=== PATIENT | male | born 1940 | race Caucasian/White ===

== ENCOUNTER 2016-07-18 09:06 | Inpatient (IN) | payer MEDICARE, OTHER ==
[~2016-07-18] VITALS: Ht 180.3 cm; Wt 86.0 kg
[2016-07-18] MEDS ORDERED: CETI10 PO (09:42)
[2016-07-18] MEDS ORDERED: HYDR25TA5 PO (09:42)
[2016-07-18] MEDS ORDERED: PRAD150C PO (09:42)
[2016-07-18] MEDS ORDERED: BOSW5TAB PO (09:42)
[2016-07-18] MEDS ORDERED: FLUT50SP EACH NARE (09:42)
[2016-07-18] MEDS ORDERED: MULT1TAB85 PO (09:42)
[2016-07-18] MEDS ORDERED: ATOR10TA15 PO (09:42)
[2016-07-18] MEDS ORDERED: METO100T9 PO (09:42)
[2016-07-18] MEDS ORDERED: TURM500C PO (09:42)
[2016-07-18] MEDS ORDERED: RAMI10CA PO (09:42)
[2016-07-18] MEDS ORDERED: UBIQ100C PO (10:09)
[2016-08-10] MEDS ORDERED: INSULIN HUMAN REGULAR 1,000 UNITS/10 ML VIAL SQ PRN (05:45)
[2016-08-10] MEDS ORDERED: DEXAMETHASONE SOD PHOS 4 MG/ML VIAL IV SCH (05:45)
[2016-08-10] MEDS ORDERED: SODIUM CHLORID 0.9% 500 ML IV SCH (05:45)
[2016-08-10] MEDS ORDERED: METOPROLOL TARTRATE 25 MG TAB PO PRN (05:45)
[2016-08-10] MEDS ORDERED: VANCOMYCIN 1000 MG/NS 250 ML (for <70 kg) IV SCH ×2 (05:45)
[2016-08-10] MEDS ORDERED: LACTATED RINGER'S 1000 ML IV SCH (05:45)
[2016-08-10] MEDS ORDERED: ceFAZolin 2 GM PREMIX 50 ML IV SCH (05:45)
[2016-08-10] MEDS: POVIDONE IODINE 7.5% SCRUB 118 ML BOTTLE TOP SCH (05:45)
[2016-08-10] MEDS ORDERED: DEXAMETHASONE SOD PHOS 20 MG/5 ML VIAL ONE (05:47)
[2016-08-10 06:04] VITALS: BP 186/77; PULSE 74; RESP 16; TEMP 98; O2SAT 98
[2016-08-10] MEDS ORDERED: FAMOTIDINE 20 MG/2 ML VIAL ONE (06:36)
[2016-08-10] MEDS ORDERED: MIDAZOLAM HCL 2 MG/2 ML VIAL ONE (06:48)
[2016-08-10] MEDS ORDERED: METOCLOPRAMIDE HCL 10 MG/2 ML VIAL ONE (06:48)
[2016-08-10] MEDS ORDERED: DEXAMETHASONE SOD PHOS 4 MG/ML VIAL ONE (06:48)
[2016-08-10] MEDS ORDERED: fentaNYL CITRATE 250 MCG/5 ML AMP ONE (06:48)
[2016-08-10] MEDS ORDERED: ACETAMINOPHEN 1000 MG/100 ML VIAL IV ONE (06:48)
--- NOTE | 2016-08-10 06:57 | HHI.DCPOC ---
Discharge Care Plan Diagnosis: (1) Osteoarthritis of right hip (2) Status post total hip replacement, right Your Health Problems Are: Difficulty with ADL Goals to Promote Your Health * To prevent worsening of your condition and complications * To maintain your health at the optimal level Directions to Meet Your Goals Take your medications as prescribed Follow your dietary instruction Follow activity as directed Keep your appointments as scheduled Take your immunizations and boosters as scheduled If your symptoms worsen call your PCP, if no PCP go to Urgent Care Center or Emergency Room Smoking is Dangerous to Your Health. Avoid second hand smoke Call the 24-hour hour crisis hotline for domestic abuse at Danyel Adam Aug 10, 2016 06:57
--- NOTE | 2016-08-10 06:57 | HHI.FF ---
Face to Face Verification Diagnosis: (1) Osteoarthritis of right hip (2) Status post total hip replacement, right Physical Therapy Gait training, Transfer training, bed to chair Hip: Total hip Right LE Weight Bearing: WB as tolerated Right LE Range of Motion: Active ROM Nursing Nursing: Ad teaching, Dressing changes Dressing Changes: Daily dressing change I have seen patient Kamron Barnhart on 08/10/16. My clinical findings support the need for the requested home health care services because: Limited ability to care for self High risk of falls I certify that my clinical findings support that this patient is homebound because: Post-op weakness Unsteady gait/balance Danyel Adam Aug 10, 2016 06:57
[2016-08-10] MEDS ORDERED: COMMODE 3-IN-11 MIS (06:59)
[2016-08-10] MEDS ORDERED: WALKER WHEELS/F1 MIS (06:59)
[2016-08-10] MEDS: EXPAREL PERI-ARTICULAR INJECTION (TOTAL VOL. 60 ML) P-ARTICULR SCH ×4 (07:00→07:56)
[2016-08-10] MEDS: TRANEXAMIC ACID INJ 860 MG in SODIUM CHLORIDE 0.9% INJ 100 ML IV SCH ×2 (07:00→07:56)
[2016-08-10] MEDS ORDERED: GENTAMICIN SULFATE 80 MG/2 ML VIAL IRRIGATION ONE (09:00)
--- NOTE | 2016-08-10 09:08 | PD.OP ---
cc: Edilberto Johansen MD Operative Report Date of Surgery: Aug 10, 2016 Preoperative Diagnosis: Right hip severe osteoarthritis Postoperative Diagnosis: Same Procedure: Right total hip arthroplasty Anesthesia: Gen. Surgeon: Edilberto Johansen Guide Setter(s): RADHA Ferguson The surgical procedure was assisted by my Advanced Registered Nurse Practitioner. My SEARCH ENGINE MARKETING SPECIALIST presence was necessary throughout this case for the manipulation and positioning of the surgical extremity. My SEARCH ENGINE MARKETING SPECIALIST was assisting me throughout the duration of this procedure. The skill set of an Advance Registered Nurse Practitioner was medically necessary to complete this procedure. During the surgical case, the combination technician was working at the back table and the Advance Registered Nurse Practitioner was directly assisting me. Operation and Findings: IMPLANT DESCRIPTION: 1. Bradford Gription Cup, acetabular size 54. 2. Bradford AltrX polyethylene, neutral. 4. [place] femoral stem size 12, no collar, standard offset. 5. Femoral head/neck metal, 36, +1.5. ESTIMATED BLOOD LOSS: 250 cc. JUSTIFICATION FOR PROCEDURE: The patient has end-stage osteoarthritis to the hip. There is an attached conservative measures pathway form in the chart that describes the nonoperative measures that were undertaken prior to consideration of surgical management. The patient understood the risks and benefits of surgical management. See my office notes for further details. PROCEDURE: The patient was brought back to the operative theatre. Adequate anesthesia was obtained. The patient received intravenous vancomycin and Ancef. The patient was carefully placed on the operative table. The lower extremity was prepped and draped in the usual sterile fashion. Fluoroscopic images were obtained. We made a standard anterior incision over the hip. We dissected through the TFL fascia, exposing the anterior capsule. Arthrotomy was performed in a T-shaped fashion. The capsule was tagged with a #2 FiberWire. End-stage arthritis was identified. Osteotomy was performed through the femoral neck exposing the acetabulum. Remnants of the labrum were resected and osteophytes were removed. We sequentially reamed the acetabulum. We trialed the hip and placed the final cup into position. This was done under fluoroscopic guidance to obtain the appropriate inclination and anteversion. A manhole cover was placed into the acetabular component. We then placed the final polyethylene into position and confirmed that it was well seated. Capsular attachments on the calcar and the inner aspect of the greater trochanter were resected. On the proximal aspect of the femur we used a rongeur , box osteotome, canal finder, sequential broaches and lateralizing rasp. We calcar planed the proximal femur. Then thoroughly irrigated the wound. We trialed the hip with the appropriate size stem. We placed the final stem in to position and trialed again. The hip was stable while it was externally rotated 70 degrees when the leg was lowered to the floor. The final head was applied, and final fluoroscopic images were obtained. The wound was thoroughly irrigated again. Interarticular injection of liposomal bupivacaine was given. The capsule was closed with #2 FiberWire and #1 Vicryl. The deep fascia was closed with a #2 Stratafix, followed by 2-0 Vicryl in the skin and kath. Postop plan is to weight-bear as tolerated. DVT prophylaxis will be performed with Larissa, FARZANEH conn, early mobilization, and Lovenox followed by Pradaxa. Edilberto Johansen MD Aug 10, 2016 09:08
[2016-08-10] MEDS ORDERED: ENOX40P SQ (09:10)
[2016-08-10] MEDS ORDERED: NORC5TAB PO (09:10)
[2016-08-10] MEDS ORDERED: SODIUM CHLORIDE 0.9% FLUSH 5 ML FLUSH IVF PRN (09:15)
[2016-08-10] MEDS ORDERED: MORPHINE SULFATE 4 MG/ML INJ IV PUSH PRN (09:15)
[2016-08-10] MEDS ORDERED: BISACODYL 10 MG SUPP PR PRN (09:15)
[2016-08-10] MEDS ORDERED: NALOXONE HCL 0.4 MG/ML AMP IV PRN (09:15)
[2016-08-10] MEDS ORDERED: diphenhydrAMINE HCL 50 MG/ML VIAL IV PRN (09:15)
[2016-08-10] MEDS ORDERED: ONDANSETRON HCL 4 MG/2 ML VIAL IVP PRN (09:15)
[2016-08-10] MEDS ORDERED: ACETAMINOPHEN/HYDROcodone 325 MG/5 MG TAB PO PRN ×2 (09:15)
[2016-08-10] MEDS ORDERED: ZOLPIDEM TARTRATE 5 MG TAB PO PRN (09:15)
[2016-08-10] MEDS ORDERED: ALUMINUM/MAGNESIUM/SIMETH 30 ML CUP PO PRN (09:15)
[2016-08-10] MEDS ORDERED: Post-op Orders (for Pharmacy) MISC XX ONE (09:15)
[2016-08-10] MEDS ORDERED: MAGNESIUM HYDROXIDE SUSP 30 ML CUP PO PRN (09:15)
[2016-08-10] MEDS ORDERED: *ENALAPRILAT 1.25 MG/ML VIAL PERIprocedural Use ONLY ONE (09:32)
[2016-08-10] MEDS ORDERED: *morphine SULFATE 8 MG/ML PERIprocedure ONLY ONE (09:32)
[2016-08-10] MEDS ORDERED: *LABETALOL HCL 100 MG/20 ML VIAL PERIprocedural Use ONLY ONE (09:33)
[2016-08-10] MEDS ORDERED: DO NOT ADM ANY ANTICOAGULANT DRUGS XX PRN (10:30)
[2016-08-10] MEDS: SODIUM CHLOR 0.9% 1000 ML INJ 1,000 ML IV SCH ×2 (10:30→23:08)
--- NOTE | 2016-08-10 10:55 | RADRPT ---
EXAM DATE/TIME: 08/10/2016 09:41 [facility] COMPARISON: CHEST PA & LAT, July 18, 2016, 11:28. INDICATIONS : Post op right hip surgery. MEDICAL HISTORY : None. SURGICAL HISTORY : None. ENCOUNTER: Initial ACUITY: 1 day PAIN SCORE: 0/10 LOCATION: Right hip and pelvis FINDINGS: Portable views of the right pelvis and right hip are performed. There is a total right hip disease is present with normal positioning. Adjacent osseous structures are unremarkable. The imaged left hip d emonstrates severe degenerative change. The bones are normally mineralized. CONCLUSION: The patient is status post total right hip arthroplasty with appropriate positioning of the prosthesi s. Palma Mcgowan MD on August 10, 2016 at 10:52 Board Certified Radiologist. This report was verified electronically.
[2016-08-10] MEDS ORDERED: TRANEXAMIC ACID INJ 860 MG in SODIUM CHLORIDE 0.9% INJ 100 ML IV SCH (11:00)
[2016-08-10 12:00] VITALS: BP 169/74; PULSE 65; RESP 17; TEMP 96.4; O2SAT 98
--- NOTE | 2016-08-10 13:09 | RADRPT ---
EXAM DATE/TIME: 08/10/2016 07:19 [facility] COMPARISON: HIP RIGHT (AP&LAT 2/3VWS) W AP PELVIS, August 10, 2016, 9:41. FLUOROSCOPY PORTABLE UP TO 1HR, 2016, 0:00. INDICATIONS : Right hip total arthroplasty. OR. MEDICAL HISTORY : None. SURGICAL HISTORY : None. ENCOUNTER: Initial ACUITY: 1 day PAIN SCORE: Non-responsive. LOCATION: Right hip FINDINGS: Fluoroscopic images of the right hip demonstrate a total right hip prosthesis and adjacent radiopaque tape which is removed on the subsequent imaging. CONCLUSION: Fluoroscopic imaging of the demonstrate no abnormality.. Palma Mcgowan MD on August 10, 2016 at 13:06 Board Certified Radiologist. This report was verified electronically.
--- NOTE | 2016-08-10 15:01 | PD.CONS ---
HPI Service [facility] Consult Requested By Orthopedic surgery. Reason for Consult Medical management. Primary Care Physician Vijay Abbasi MD Diagnoses: (1) Osteoarthritis of right hip (2) Paroxysmal a-fib (3) HTN (hypertension) (4) HLD (hyperlipidemia) History of Present Illness Mr. Barnhart is a pleasant 76 year old male with a history of hypertension, hyperlipidemia, paroxysmal atrial fibrillation who also has a history of right hip osteoarthritis and underwent elective right total hip arthroplasty on 2016. Post surgery, patient continues to do well. At the time of this interview , patient is sitting in his chair. Reports good pain control. Denies any chest pain, shortness of breath, nausea, vomiting. Denies any changes in bowel or bladder habits. Review of Systems ROS Limitations: Other (Negative except as noted in the HPI. ) Past Family Social History Allergies: Coded Allergies: No Known Allergies (Unverified , 07/18/16) Past Medical History Hypertension Hyperlipidemia Paroxysmal Atrial fibrillation Past Surgical History Hernia repair, nasal polyp surgery Active Ordered Medications Current Medications Povidone Iodine 1 applic 1 applic ONCE TOP Last administered on 08/10/16 05:45 ; Start 08/10/16 at 05:45; Stop 08/13/16 at 05:44 Cefazolin Sodium/ Dextrose 50 ml @ 100 mls/hr WINDOW SHADE INSTALLER IV Last administered on 08/10/16 06:09; Start 08/10/16 at 05:45; Stop 08/13/16 at 05:44 Vancomycin HCl 1000 mg/Sodium Chloride 250 ml @ 250 mls/hr WINDOW SHADE INSTALLER IV Last administered on 08/10/16 06:11; Start 08/10/16 at 05:45; Stop 08/13/16 at 05:44 Tranexamic Acid 860 mg/Sodium Chloride 108.6 ml @ 200 mls/hr ONCE IV Last administered on 08/10/16 07:56; Start 08/10/16 at 07:00; Stop 08/10/16 at 13:00 ; Status DC Bupivacaine Liposome 20 ml/ Sodium Chloride 60 ml @ 120 mls/hr ONCE P-ARTICULR Last administered on 08/10/16 07:56; Start 08/10/16 at 07:00; Stop 08/10/16 at 13:00; Status DC Lactated Ringer's 1,000 ml @ 30 mls/hr Q24H IV Last administered on 08/10/16 06:00; Start 08/10/16 at 05:45; Stop 08/10/16 at 10:27; Status DC Sodium Chloride (NS 500 ml Inj) 500 ml @ 30 mls/hr [id number] IV ; Start 08/10/16 at 05:45; Stop 08/10/16 at 10:27; Status DC Insulin Human Regular (NovoLIN R INJ) See Protocol Table ... UNSCH X1 PRN SQ SEE PROTOCOL; Start 08/10/16 at 05:45; Stop 08/11/16 at 05:44 Metoprolol Tartrate (Lopressor) 25 mg UNSCH X1 PRN PO SEE LABEL COMMENTS; Start 08/10/16 at 05:45; Stop 08/11/16 at 05:44 Dexamethasone Sodium Phosphate (Decadron Inj) 10 mg WINDOW SHADE INSTALLER IV ; Start at 05:45; Stop 08/10/16 at 12:00; Status DC Dexamethasone Sodium Phosphate (Decadron Inj) 20 mg STK-MED ONCE .ROUTE Last administered on 08/10/16 06:05; Start 08/10/16 at 05:47; Stop 08/10/16 at 05:48 ; Status DC Famotidine (Pepcid Inj) 20 mg STK-MED ONCE .ROUTE Last administered on 06:37; Start 08/10/16 at 06:36; Stop 08/10/16 at 06:37; Status DC Acetaminophen (Ofirmev Inj) 1,000 mg STK-MED ONCE IV ; Start 08/10/16 at 06:48; Stop 08/10/16 at 06:52; Status DC Midazolam HCl (Versed Inj) 2 mg STK-MED ONCE .ROUTE ; Start 08/10/16 at 06:48; Stop 08/10/16 at 06:52; Status DC Fentanyl Citrate (fentaNYL INJ) 100 mcg STK-MED ONCE .ROUTE ; Start 08/10/16 at 06:48; Stop 08/10/16 at 06:52; Status DC Fentanyl Citrate (fentaNYL INJ) 250 mcg STK-MED ONCE .ROUTE ; Start 08/10/16 at 06:48; Stop 08/10/16 at 06:52; Status DC Dexamethasone Sodium Phosphate (Decadron Inj) 8 mg STK-MED ONCE .ROUTE ; Start 08/10/16 at 06:48; Stop 08/10/16 at 06:52; Status DC Metoclopramide HCl (Reglan Inj) 10 mg STK-MED ONCE .ROUTE ; Start 08/10/16 at 06 :48; Stop 08/10/16 at 06:52; Status DC Atorvastatin Calcium (Lipitor) 10 mg HS PO Last administered on 08/10/16 23:08 ; Start 08/10/16 at 21:00 Cetirizine HCl (ZyrTEC) 10 mg HS PO Last administered on 08/10/16 23:08; Start 08/10/16 at 21:00 Hydrochlorothiazide (Hydrodiuril) 25 mg DAILY PO ; Start 08/11/16 at 09:00 Ramipril (Altace) 10 mg DAILY PO ; Start 08/11/16 at 09:00 Metoprolol Succinate (Toprol Xl) 100 mg DAILY PO ; Start 08/11/16 at 09:00 Non-Formulary Medication 10 mg 10 mg DAILY PO ; Start 08/11/16 at 09:00; Status UNV Sodium Chloride (NS 1000 ml Inj) 1,000 ml @ 100 mls/hr Q10H IV Last administered on 08/10/16 23:08; Start 08/10/16 at 11:00 IV Flush (NS Flush) 2 ml UNSCH PRN IVF FLUSH AFTER USING IV ACCESS; Start 08/10 at 09:15 IV Flush 2 ml 2 ml BID IVF Last administered on 08/10/16 23:10; Start at 21:00 Cefazolin Sodium/ Sodium Chloride (Ancef Inj/NS Inj) 100 ml @ 200 mls/hr Q6H IV Last administered on 08/10/16 23:59; Start 08/10/16 at 12:00; Stop at 00:29 Miscellaneous Information (Post-op Orders (for Pharmacy)) STAT ONCE XX ; Start 08/10/16 at 09:15; Stop 08/10/16 at 10:45; Status DC Dexamethasone Sodium Phosphate (Decadron Inj) 10 mg ONCE ONCE IV ; Start at 07:45; Stop 08/11/16 at 07:46 Enoxaparin Sodium (Lovenox Inj) 40 mg Q24H SQ ; Start 08/11/16 at 09:00; Stop at 09:01 Acetaminophen/ Hydrocodone Bitart ([place] 5-325 Mg) 1 tab Q4H PRN PO PAIN LESS THAN 5 ON SCALE; Start 08/10/16 at 09:15 Acetaminophen/ Hydrocodone Bitart 2 tab 2 tab Q4H PRN PO PAIN SCALE 5 TO 10; Start 08/10/16 at 09:15 Tranexamic Acid/ Sodium Chloride (Cyklokapron Inj/ NS Inj) 108.6 ml @ 200 mls/ hr UNSCH IV Last administered on 08/10/16t 11:43; Start 08/10/16 at 11:00; Stop 08/10/16 at 17:00; Status DC Multivitamins/ Minerals Therapeutic (Theragran M Tab) 1 tab BID PO ; Start 08/11 at 21:00; Stop 10/10/16 at 20:59 Ondansetron HCl (Zofran Inj) 4 mg Q6H PRN IVP NAUSEA OR VOMITING; Start at 09:15 Docusate Sodium (Colace) 100 mg BID PO ; Start 08/11/16 at 21:00 Al Hydrox/Mg Hydrox/Simethicone (Mag-Al Plus Susp Liq) 30 ml Q6H PRN PO INDIGESTION; Start 08/10/16 at 09:15 Zolpidem Tartrate (Ambien) 5 mg HS PRN PO SLEEP; Start 08/10/16 at 09:15 Bisacodyl (Dulcolax Supp) 10 mg DAILY PRN CA CONSTIPATION; Start 08/10/16 at 09 :15 Magnesium Hydroxide (Milk Of Magnesia Liq) 30 ml DAILY PRN PO CONSTIPATION; Start 08/10/16 at 09:15 Naloxone HCl (Narcan Inj) 0.4 mg UNSCH PRN IV RESPIRATORY RATE LESS THAN 10; Start 08/10/16 at 09:15 Diphenhydramine HCl (Benadryl Inj) 25 mg Q6H PRN IV ITCHING; Start 08/10/16 at 09:15 Morphine Sulfate (Morphine Inj) 2 mg Q3H PRN IV PUSH pain greater than 5; Start 08/10/16 at 09:15 Morphine Sulfate (*morphine INJ PERIprocedure ONLY) 8 mg STK-MED ONCE .ROUTE Last administered on 08/10/16 09:32; Start 08/10/16 at 09:32; Stop 08/10/16 at 09:37; Status DC Enalaprilat (*VASOTEC INJ PERIprocedural Use ONLY) 1.25 mg STK-MED ONCE .ROUTE Last administered on 08/10/16 09:32; Start 08/10/16 at 09:32; Stop 08/10/16 at 09:37; Status DC Labetalol HCl (*TRANDATE INJ PERIprocedural Use ONLY) 100 mg STK-MED ONCE .ROUTE Last administered on 08/10/16 09:33; Start 08/10/16 at 09:33; Stop 06/16 at 09:37; Status DC Miscellaneous Information ALL NURSING DEPARTME... UNSCH PRN XX SEE LABEL COMMENTS; Start 08/10/16 at 10:30; Stop 08/11/16 at 10:29 Gentamicin Sulfate (Gentamicin Inj) 240 mg STK-MED ONCE IRRIGATION Last administered on 08/10/16 09:00; Start 08/10/16 at 09:00; Stop 08/10/16 at 11:11 ; Status DC Propofol (Diprivan 200 Mg/20 ml Inj) 200 mg STK-MED ONCE IV ; Start 08/10/16 at 15:16; Stop 08/10/16 at 15:17; Status DC Ondansetron HCl 4 mg 4 mg STK-MED ONCE IV PUSH ; Start 08/10/16 at 15:16; Stop 08/10/16 at 15:17; Status DC Lactated Ringer's (Lr 1000 ml Inj) 1,000 ml @ As Directed STK-MED ONCE IV ; Start 08/10/16 at 15:16; Stop 08/10/16 at 15:17; Status DC Family History Mother had dementia. Social History Does not smoke but drinks 1-2 glasses of wine several times a week. Physical Exam Vital Signs Vital Signs Date Time Temp Pulse Resp B/P Pulse Ox O2 Delivery O2 Flow Rate FiO2 08/10/16 12:00 96.4 65 17 169/74 98 08/10/16 11:30 70 16 167/76 99 Nasal Cannula 2 08/10/16 11:00 66 16 164/80 99 Nasal Cannula 2 08/10/16 10:30 62 16 162/72 99 Nasal Cannula 2 08/10/16 10:15 76 16 160/70 99 Nasal Cannula 2 08/10/16 10:00 68 16 184/89 99 Nasal Cannula 2 08/10/16 09:45 76 16 169/75 99 Nasal Cannula 2 08/10/16 09:30 68 16 188/92 99 Nasal Cannula 2 08/10/16 09:20 98.7 60 16 197/93 99 Nasal Cannula 2 08/10/16 06:04 98.0 74 16 186/77 98 Physical Exam GENERAL: This is a well-nourished, well-developed patient, in no apparent distress. SKIN: No rashes, ecchymoses or lesions. Warm and dry. HEAD: Atraumatic. Normocephalic. No temporal or scalp tenderness. EYES: Pupils equal round and reactive. No injection or drainage. ENT: Nose without bleeding, purulent drainage or septal hematoma. Airway patent. NECK: Trachea midline. No lymphadenopathy. Supple, nontender, no meningeal signs. CARDIOVASCULAR: Regular rate and rhythm, gallops, or rubs. No JVD. Systolic murmur present likely aortic stenosis. RESPIRATORY: Clear to auscultation. Breath sounds equal bilaterally. No wheezes , rales, or rhonchi. GASTROINTESTINAL: Abdomen soft, non-tender, nondistended. No guarding. MUSCULOSKELETAL: Extremities without clubbing, cyanosis, or edema. NEUROLOGICAL: Awake and alert. Cranial nerves II through XII intact. No focal neurological deficits. Normal speech. Laboratory Laboratory Tests Test 08/10/16 06:03 Blood Type O POSITIVE Antibody Screen NEGATIVE Blood Bank Comment Imaging Last Impressions Hip and Pelvis X-Ray 08/10/16 0903 Signed Impressions: Service Date/Time: Wednesday, August 10, 2016 09:41 - CONCLUSION: The patient is status post total right hip arthroplasty with appropriate positioning of the prosthesis. Palma Mcgowan MD Hip X-Ray 08/10/16 0000 Signed Impressions: Service Date/Time: Wednesday, August 10, 2016 07:19 - CONCLUSION: Fluoroscopic imaging of the demonstrate no abnormality.. Palma Mcgowan MD Assessment and Plan Problem List: (1) Osteoarthritis of right hip ICD Code: M16.11 Status: Acute (2) Paroxysmal a-fib ICD Code: I48.0 Status: Acute (3) HTN (hypertension) ICD Code: I10 Status: Acute (4) HLD (hyperlipidemia) ICD Code: E78.5 Status: Acute Assessment and Plan Mr. Barnhart, 76 with a history of Afib, HTN, HLD, osteoarthritis who underwent elective right hip arthroplasty on 08/10/2016. Currently, patient is hemodynamically stable, afebrile, pain well controlled. - Osteoarthritis of the right hip - s/p right total hip arthroplasty. - [place], Morphine for pain PRN - Colace, Milk of Mag for bowel regimen. - Lovenox 40mg Q24hrs starting 08/11/2016. - Atrial fibrillation - [id number] score 3 (Age >75, HTN). - Continue metoprolol succinate 100mg Qday - Continue Pradaxa when okay with Orthopedic surgery. - Patient wants to discuss with his Independent Driver regarding once a day dosing of Xarelto. - Also encouraged patient to discuss with his steward/stewardess lounge regarding an Echocardiogram to investigate possible Aortic stenosis. - Hypertension - Continue Ramipril 10mg Qday, HCTZ 25 mg Qday. - Hyperlipidemia - Continue Lipitor 10mg QHS. - Probable pre-diabetic mellitus - Patient is encouraged to discuss with his PCP regarding metformin if indicated. Full code. Lovenox starting 08/11/2016. Thank you for the consult. We will continue to follow this patient with you. Clay Francis DO Aug 10, 2016 15:01
[2016-08-10] MEDS ORDERED: LACTATED RINGER'S 1000 ML INJ 1,000 ML IV ONE (15:16)
[2016-08-10] MEDS ORDERED: ONDANSETRON HCL 4 MG/2 ML VIAL IV PUSH ONE (15:16)
[2016-08-10] MEDS ORDERED: PROPOFOL 200 MG/20 ML AMP IV ONE (15:16)
[2016-08-10 16:00] VITALS: BP 144/65; PULSE 71; RESP 20; TEMP 96.8; O2SAT 98
[2016-08-10 20:40] VITALS: BP 142/63; PULSE 68; RESP 18; TEMP 97.1; O2SAT 97
[2016-08-10] MEDS ORDERED: CETIRIZINE HCL 10 MG TAB PO SCH (21:00)
[2016-08-10] MEDS ORDERED: ATORVASTATIN 10 MG TAB PO SCH (21:00)
[2016-08-10] MEDS: SODIUM CHLORIDE 0.9% FLUSH 5 ML FLUSH IVF SCH (23:10)
[2016-08-11 01:15] VITALS: BP 183/82; PULSE 82; RESP 17; TEMP 97; O2SAT 98
[2016-08-11] MEDS: POVIDONE IODINE 7.5% SCRUB 118 ML BOTTLE TOP SCH (05:45)
[2016-08-11 05:51] LABS: HEMATOCRIT 36.6 % (39.0-51.0); MEAN CELL VOLUME 86.6 FL (80.0-100.0); MEAN CORPUSCULAR HEMOGLOBIN 29.6 PG (27.0-34.0); MEAN CORPUSCULAR HGB CONC 34.2 % (32.0-36.0); PLATELET COUNT 186 TH/MM3 (150-450); RED BLOOD COUNT 4.23 MIL/MM3 (4.50-5.90); RED CELL DISTRIBUTION WIDTH 12.6 % (11.6-17.2); REVIEW FLAG FINAL; WHITE BLOOD COUNT 14.8 TH/MM3 (4.0-11.0)
[2016-08-11] MEDS: SODIUM CHLOR 0.9% 1000 ML INJ 1,000 ML IV SCH (07:00)
[2016-08-11] MEDS ORDERED: DEXAMETHASONE SOD PHOS 20 MG/5 ML VIAL IV ONE (07:45)
[2016-08-11 08:00] VITALS: BP 154/75; PULSE 75; RESP 16; TEMP 98.1; O2SAT 99
[2016-08-11] MEDS ORDERED: METOPROLOL SUCCINATE 50 MG EXTENDED RELEASE TAB PO SCH (09:00)
[2016-08-11] MEDS ORDERED: HYDROCHLOROTHIAZIDE 25 MG TAB PO SCH (09:00)
[2016-08-11] MEDS ORDERED: RAMIPRIL 5 MG CAP PO SCH (09:00)
[2016-08-11] MEDS ORDERED: UBIQUINOL PO SCH (09:00)
[2016-08-11] MEDS: ENOXAPARIN SODIUM 40 MG/0.4 ML SYRINGE SQ SCH ×2 (09:20→09:21)
[2016-08-11] MEDS: SODIUM CHLORIDE 0.9% FLUSH 5 ML FLUSH IVF SCH (09:20)
--- NOTE | 2016-08-11 10:59 | HHI.PR ---
Subjective Remarks Follow up for right hip arthroplasty, Afib. Mr. Barnhart is doing well. Denies any chest pain, shortness of breath, fever or chills. Objective Vitals Vital Signs Date Time Temp Pulse Resp B/P Pulse Ox O2 Delivery O2 Flow Rate FiO2 08/11/16 08:00 98.1 75 16 154/75 99 08/11/16 01:15 97.0 82 17 183/82 98 08/10/16 20:40 97.1 68 18 142/63 97 08/10/16 16:00 96.8 71 20 144/65 98 08/10/16 12:00 96.4 65 17 169/74 98 08/10/16 11:30 70 16 167/76 99 Nasal Cannula 2 08/10/16 11:00 66 16 164/80 99 Nasal Cannula 2 I/O 08/10/16 08/10/16 08/10/16 08/11/16 08/11/16 08/11/16 07:00 15:00 23:00 07:00 15:00 23:00 Intake Total 580 ml 360 ml 1300 ml 720 ml Output Total 800 ml 800 ml 500 ml Balance -220 ml -440 ml 1300 ml 220 ml Intake Oral 480 ml 360 ml 720 ml IV Total 100 ml 1300 ml Output Urine Total 800 ml 800 ml 500 ml # Bowel Movements 0 0 Result Diagram: 08/11/16 0439 Imaging Last Impressions Hip and Pelvis X-Ray 08/10/16 0903 Signed Impressions: Service Date/Time: Wednesday, August 10, 2016 09:41 - CONCLUSION: The patient is status post total right hip arthroplasty with appropriate positioning of the prosthesis. Palma Mcgowan MD Hip X-Ray 08/10/16 0000 Signed Impressions: Service Date/Time: Wednesday, August 10, 2016 07:19 - CONCLUSION: Fluoroscopic imaging of the demonstrate no abnormality.. Palma Mcgowan MD Objective Remarks GENERAL: Alert, oriented 3. SKIN: Warm and dry. HEAD: Normocephalic. EYES: No scleral icterus. No injection or drainage. NECK: Supple, trachea midline. No JVD or lymphadenopathy. CARDIOVASCULAR: Regular rate and rhythm without, gallops, or rubs. Systolic murmur present. RESPIRATORY: Breath sounds equal bilaterally. No accessory muscle use. GASTROINTESTINAL: Abdomen soft, non-tender, nondistended. MUSCULOSKELETAL: No cyanosis, or edema. BACK: Nontender without obvious deformity. No CVA tenderness. Procedures Right total hip arthroplasty 08/10/2016 A/P Problem List: (1) Osteoarthritis of right hip ICD Code: M16.11 Status: Acute (2) Paroxysmal a-fib ICD Code: I48.0 Status: Acute (3) HTN (hypertension) ICD Code: I10 Status: Acute (4) HLD (hyperlipidemia) ICD Code: E78.5 Status: Acute Assessment and Plan Mr. Barnhart, 76 with a history of Afib, HTN, HLD, osteoarthritis who underwent elective right hip arthroplasty on 08/10/2016. Currently, patient is hemodynamically stable, afebrile, pain well controlled. - Osteoarthritis of the right hip - s/p right total hip arthroplasty. - [place], Morphine for pain PRN - Colace, Milk of Mag for bowel regimen. - Lovenox 40mg Q24hrs starting 08/11/2016. - Atrial fibrillation - [id number] score 3 (Age >75, HTN). - Continue metoprolol succinate 100mg Qday - Continue Pradaxa when okay with Orthopedic surgery. - Patient wants to discuss with his Laboratory Apparatus Glass Grinder regarding once a day dosing of Xarelto. - Also encouraged patient to discuss with his counsellors regarding an Echocardiogram to investigate possible Aortic stenosis. - Hypertension - Continue Ramipril 10mg Qday, HCTZ 25 mg Qday. - Hyperlipidemia - Continue Lipitor 10mg QHS. - Probable pre-diabetic mellitus - Patient is encouraged to discuss with his PCP regarding metformin if indicated. Full code. Lovenox starting 08/11/2016. Patient is being discharged today by Orthopedic surgery. Clay Francis DO Aug 11, 2016 10:59 am
[2016-08-11 11:50] VITALS: BP 142/73; PULSE 67; RESP 16; TEMP 97.7; O2SAT 99
--- NOTE | 2016-08-11 12:27 | PD.ORT.PN ---
Subjective Post Op Day #: 1 Subjective Remarks The patient is OOB in chair with no pain to the left hip. Patient is very happy with his surgery and is requesting to go home today. Objective Vitals Vital Signs Date Time Temp Pulse Resp B/P Pulse Ox O2 Delivery O2 Flow Rate FiO2 08/11/16 08:00 98.1 75 16 154/75 99 08/11/16 01:15 97.0 82 17 183/82 98 08/10/16 20:40 97.1 68 18 142/63 97 08/10/16 16:00 96.8 71 20 144/65 98 I/O 08/10/16 08/10/16 08/10/16 08/11/16 08/11/16 08/11/16 07:00 15:00 23:00 07:00 15:00 23:00 Intake Total 580 ml 360 ml 1300 ml 720 ml Output Total 800 ml 800 ml 500 ml Balance -220 ml -440 ml 1300 ml 220 ml Intake Oral 480 ml 360 ml 720 ml IV Total 100 ml 1300 ml Output Urine Total 800 ml 800 ml 500 ml # Bowel Movements 0 0 Result Diagram: 08/11/16 0439 Procedures Right RITA Objective Remarks The patient's dressings are changed today with no drainage. Incision is well approximated with surgical clips intact. No redness or s/s of infection. Mild echymosis. EHL/TA/G intact. 2+ pedal pulse. Calf is soft and nontender. + SILT. Mild swelling. Assessment & Plan Ortho Post Op Day #: 1 Problem List: Assessment and Plan Right RITA 1. WBAT RLE 2. Lovenox for DVT prophylaxis followed by Pradaxa 3. Ice to the right hip PRN 4. Patient stable for discharge home with home health today. Danyel Adam Aug 11, 2016 12:27
[2016-08-11] MEDS ORDERED: DOCUSATE SODIUM 100 MG CAP PO SCH (21:00)
[2016-08-11] MEDS ORDERED: MULTIVITAMINS/MINERALS THERAPEUTIC TAB PO SCH (21:00)
--- NOTE | 2016-08-14 17:52 | HHI.DS ---
Discharge Summary Admission Date Aug 10, 2016 at 05:22 Discharge Date: Aug 11, 2016 Admitting Diagnosis OA of the right hip Status post right Total hip arthroplasty Diagnosis: (1) Status post total hip replacement, right Diagnosis: Principal (2) Osteoarthritis of right hip Diagnosis: Principal Procedures Right RITA Brief History This is a 76 year old male patient with severe OA of the right hip CBC/BMP: 08/11/16 0439 PE at Discharge The patient's dressings are changed today with no drainage. Incision is well approximated with surgical clips intact. No redness or s/s of infection. Mild echymosis. EHL/TA/G intact. 2+ pedal pulse. Calf is soft and nontender. + SILT. Mild swelling. Hospital Course The patient was admitted to the hospital for severe OA of the right hip to have a right RITA. The patient's surgery went well with no complications. The patient had a normal hospital course. The patient is WBAT on the RLE. The patient is discharged home with home health and will f/u with Dr. Johansen in 1-2 weeks. Pt Condition on Discharge: Stable Discharge Disposition: Disch w/ Home Health Serv Discharge Instructions Diet Instructions: As Tolerated, No Restrictions Activities You Can Perform: Weight Bearing as Virginie Activities to Avoid: Strenuous Activity Follow up Referrals: Orthopedics with Edilberto Johansen MD New Medications: Commode 3-in-1 (Commode 3-in-1) 1 Mis Mis 1 EA .ROUTE DIRECTED #1 Ref 0 EA Enoxaparin Inj (Lovenox Inj) 40 Mg/0.4 Ml Syr 40 MG SQ DAILY Resume Pradaxa after Lovenox is completed Blood Clot Prevention # 10 Ref 0 SYRINGE Hydrocodone-Acetaminophen ([place]) 5-325 mg Tab 1-2 TAB PO Q4H PRN PAIN #60 Ref 0 TAB Walker with Front Wheels (Walker with Front Wheels) 1 Mis Mis 1 EA .ROUTE DIRECTED #1 Ref 0 EA Continued Medications: Atorvastatin (Atorvastatin) 10 Mg Tab 10 MG PO HS Cholesterol Management #30 Ref 0 TAB Cetirizine (Cetirizine) 10 Mg Tab 10 MG PO HS Allergies Ref 0 TAB Fluticasone Nasal [place] (Fluticasone Nasal [place]) 50 Mcg/Act Naspr 50 MCG EACH NARE HS 50 mcg/spray Allergy Management #1 Ref 0 BOTTLE Hydrochlorothiazide (Hydrochlorothiazide) 25 Mg Tab 25 MG PO DAILY #30 Ref 0 TAB Metoprolol Succinate ER 24 HR (Metoprolol Succinate ER 24 HR) 100 Mg Tab 100 MG PO DAILY #30 Ref 0 TAB Multiple Vitamins W/ Minerals (Multivitamin Men) 1 Tab Tab 1 TAB PO DAILY Nutritional Supplement Ref 0 TAB Ramipril (Ramipril) 10 Mg Cap 10 MG PO DAILY #30 Ref 0 CAP Discontinued Medications: Kuacffiug-Pwohjjjmiks-Xyuleqn (Osteo Bi-Flex One A Day) 1 Tab 1 TAB PO DAILY TAB Dabigatran (Pradaxa) 150 Mg Cap 150 MG PO BID Blood Clot Prevention #60 Ref 0 CAP Turmeric (Curcuma Longa) (Turmeric) 500 Mg Cap 500 MG PO DAILY Nutritional Supplement Ref 0 CAP Ubiquinol (Ubiquinol) 100 Mg Cap 10 MG PO DAILY Danyel Adam Aug 14, 2016 17:52
== END 2016-08-11 15:11 | disposition home health service (06) | DRG 470 ==
LOC: HSDI 08-10 05:22 → EDUNIT# 08-10 07:00 → N06B 08-10 12:11
PROVIDERS: ADMIT Orthopaedic Surgery; ATTEND Orthopaedic Surgery
PROC: 0SR902A Replacement of Right Hip Joint with Metal on Polyethylene Synthetic Substitute, Uncemented, Open Approach (ICD-10-PCS; principal; 2016-08-10 06:50)
DX: M16.11 Unilateral primary osteoarthritis, right hip (principal); I48.0 Paroxysmal atrial fibrillation; I10 Essential (primary) hypertension; E78.5 Hyperlipidemia, unspecified; R73.03 Prediabetes
CPT/HCPCS: 73502; 76000; 85027; 86850; 86900; 86901; 94150; C1776; C9290; J0131; J0690; J1100; J1580; J1650; J2250; J2270; J2405; J2765; J3010; J3370; J7030; J7050; J7120

== ENCOUNTER 2017-01-06 13:18 | Inpatient (IN) | payer MEDICARE, OTHER ==
[~2017-01-06] VITALS: Ht 180.3 cm; Wt 84.9 kg
[~2017-01-06 13:18] MED LIST: ATOR10TA15 PO; CETI10 PO; FLUT50SP EACH NARE; HYDR25TA5 PO; METO100T9 PO; RAMI10CA PO
[2017-01-10] MEDS ORDERED: MULT-65 PO (14:47)
[2017-01-10] MEDS ORDERED: PRAD75CA PO (14:47)
[2017-01-25] MEDS ORDERED: VANCOMYCIN 1000 MG/NS 250 ML (for <70 kg) IV SCH ×2 (05:30)
[2017-01-25] MEDS ORDERED: POVIDONE IODINE 7.5% SCRUB 118 ML BOTTLE TOPICAL SCH (05:30)
[2017-01-25] MEDS ORDERED: ceFAZolin 2 GM PREMIX 50 ML IV SCH (05:30)
[2017-01-25] MEDS ORDERED: DEXAMETHASONE SOD PHOS 20 MG/5 ML VIAL ONE (05:37)
[2017-01-25] MEDS ORDERED: LACTATED RINGER'S 1000 ML IV PRN (05:45)
[2017-01-25] MEDS ORDERED: METOPROLOL TARTRATE 25 MG TAB PO PRN (05:45)
[2017-01-25] MEDS ORDERED: CHLORHEXIDINE GLUCONATE 2 % 1 PACK (2 CLOTHS) TOPICAL PRN (05:45)
[2017-01-25] MEDS ORDERED: SODIUM CHLORID 0.9% 500 ML IV PRN (05:45)
[2017-01-25] MEDS ORDERED: POVIDONE IODINE 5% (ANTISEPSIS KIT) 4 APPLICATIONS EACH NARE PRN (05:45)
[2017-01-25] MEDS ORDERED: INSULIN HUMAN REGULAR 1,000 UNITS/10 ML VIAL SQ PRN (05:45)
[2017-01-25 05:49] VITALS: BP 186/86; PULSE 60; RESP 16; TEMP 98; O2SAT 100
[2017-01-25] MEDS ORDERED: PRAD150C PO (05:54)
[2017-01-25] MEDS ORDERED: GENTAMICIN SULFATE 80 MG/2 ML VIAL ONE (06:09)
[2017-01-25] MEDS ORDERED: MIDAZOLAM HCL 2 MG/2 ML VIAL ONE (06:36)
[2017-01-25] MEDS ORDERED: ACETAMINOPHEN 1000 MG/100 ML VIAL IV ONE (06:36)
[2017-01-25] MEDS ORDERED: fentaNYL CITRATE 250 MCG/5 ML AMP ONE (06:36)
[2017-01-25] MEDS ORDERED: FAMOTIDINE 20 MG/2 ML VIAL ONE (06:37)
--- NOTE | 2017-01-25 06:47 | HHI.DCPOC ---
Discharge Care Plan Diagnosis: (1) Status post total hip replacement, left (2) Osteoarthritis of left hip Your Health Problems Are: Difficulty with ADL Goals to Promote Your Health * To prevent worsening of your condition and complications * To maintain your health at the optimal level Directions to Meet Your Goals Take your medications as prescribed Follow your dietary instruction Follow activity as directed Keep your appointments as scheduled Take your immunizations and boosters as scheduled If your symptoms worsen call your PCP, if no PCP go to Urgent Care Center or Emergency Room Smoking is Dangerous to Your Health. Avoid second hand smoke Call the 24-hour hour crisis hotline for domestic abuse at Danyel Adam Jan 25, 2017 06:47
--- NOTE | 2017-01-25 06:48 | HHI.FF ---
Face to Face Verification Diagnosis: (1) Status post total hip replacement, left (2) Osteoarthritis of left hip Physical Therapy Gait training, Transfer training, bed to chair Hip: Total hip Left LE Weight Bearing: WB as tolerated Left LE Range of Motion: Active ROM Nursing Nursing: Dressing changes Dressing Changes: Daily dressing change I have seen patient Kamron Barnhart on 01/25/17. My clinical findings support the need for the requested home health care services because: Limited ability to care for self High risk of falls I certify that my clinical findings support that this patient is homebound because: Post-op weakness Unsteady gait/balance Danyel Adam Jan 25, 2017 06:47
[2017-01-25] MEDS ORDERED: WALKER WHEELS/F1 MIS (06:49)
[2017-01-25] MEDS ORDERED: COMMODE 3-IN-11 MIS (06:49)
[2017-01-25] MEDS ORDERED: SODIUM CHLORIDE 0.9% IV SCH ×2 (07:00→10:00)
[2017-01-25] MEDS ORDERED: TRANEXAMIC ACID IV SCH ×2 (07:00→10:00)
[2017-01-25] MEDS ORDERED: DEXAMETHASONE SOD PHOS 4 MG/ML VIAL IV SCH (07:00)
[2017-01-25] MEDS ORDERED: EXPAREL PERI-ARTICULAR INJECTION (TOTAL VOL. 60 ML) P-ARTICULR SCH ×2 (07:00)
[2017-01-25] MEDS ORDERED: SODIUM CHLORIDE 0.9% FLUSH 5 ML FLUSH IVF PRN (08:45)
[2017-01-25] MEDS ORDERED: BISACODYL 10 MG SUPP RECTAL PRN (08:45)
[2017-01-25] MEDS ORDERED: ZOLPIDEM TARTRATE 5 MG TAB PO PRN (08:45)
[2017-01-25] MEDS ORDERED: diphenhydrAMINE HCL 50 MG/ML VIAL IV PRN (08:45)
[2017-01-25] MEDS ORDERED: MORPHINE SULFATE 4 MG/ML INJ IV PUSH PRN (08:45)
[2017-01-25] MEDS ORDERED: ACETAMINOPHEN/HYDROcodone 325 MG/5 MG TAB PO PRN ×2 (08:45)
[2017-01-25] MEDS ORDERED: NALOXONE HCL 0.4 MG/ML AMP IV PRN (08:45)
[2017-01-25] MEDS ORDERED: ONDANSETRON HCL 4 MG/2 ML VIAL IVP PRN (08:45)
[2017-01-25] MEDS ORDERED: ALUMINUM/MAGNESIUM/SIMETH 30 ML CUP PO PRN (08:45)
--- NOTE | 2017-01-25 08:46 | PD.OP ---
cc: Edilberto Johansen MD Operative Report Date of Surgery: Jan 25, 2017 Preoperative Diagnosis: Left hip severe osteoarthritis Postoperative Diagnosis: Same Procedure: Left total hip arthroplasty Anesthesia: Gen. Surgeon: Edilberto Johansen Community Health Director(s): RADHA Ferguson The surgical procedure was assisted by my Advanced Registered Nurse Practitioner. My HOOKER OFF presence was necessary throughout this case for the manipulation and positioning of the surgical extremity. My HOOKER OFF was assisting me throughout the duration of this procedure. The skill set of an Advance Registered Nurse Practitioner was medically necessary to complete this procedure. During the surgical case, the certified surgical technologist was working at the back table and the Advance Registered Nurse Practitioner was directly assisting me. Operation and Findings: IMPLANT DESCRIPTION: 1. Omer Gription Cup, acetabular size 54. 2. Omer AltrX polyethylene, neutral. 4. Corail femoral stem size 11, no collar, standard offset. 5. Femoral head/neck metal, 36, 1.5. ESTIMATED BLOOD LOSS: 250 cc. JUSTIFICATION FOR PROCEDURE: The patient has end-stage osteoarthritis to the hip. There is an attached conservative measures pathway form in the chart that describes the nonoperative measures that were undertaken prior to consideration of surgical management. The patient understood the risks and benefits of surgical management. See my office notes for further details. PROCEDURE: The patient was brought back to the operative theatre. Adequate anesthesia was obtained. The patient received intravenous vancomycin and Ancef. The patient was carefully placed on the operative table. The lower extremity was prepped and draped in the usual sterile fashion. Fluoroscopic images were obtained. We made a standard anterior incision over the hip. We dissected through the TFL fascia, exposing the anterior capsule. Arthrotomy was performed in a T-shaped fashion. The capsule was tagged with a #2 FiberWire. End-stage arthritis was identified. Osteotomy was performed through the femoral neck exposing the acetabulum. Remnants of the labrum were resected and osteophytes were removed. We sequentially reamed the acetabulum. We trialed the hip and placed the final cup into position. This was done under fluoroscopic guidance to obtain the appropriate inclination and anteversion. A manhole cover was placed into the acetabular component. We then placed the final polyethylene into position and confirmed that it was well seated. Capsular attachments on the calcar and the inner aspect of the greater trochanter were resected. On the proximal aspect of the femur we used a rongeur , box osteotome, canal finder, sequential broaches and lateralizing rasp. We calcar planed the proximal femur. Then thoroughly irrigated the wound. We trialed the hip with the appropriate size stem. We trialed a size 12 stem. However, we were unable to the seat this stem as low as the 12 on the other side. Therefore we downsized to the 11 in order to more equalize the position of the stem. When we trialed the 12, the tension was too high on the hip. We placed the final stem in to position and trialed again. The hip was stable while it was externally rotated 70 degrees when the leg was lowered to the floor. The final head was applied, and final fluoroscopic images were obtained. The wound was thoroughly irrigated again. Interarticular injection of liposomal bupivacaine was given. The capsule was closed with #2 FiberWire and #1 Vicryl. The deep fascia was closed with a #2 Stratafix, followed by 2-0 Vicryl in the skin and kath. Postop plan is to weight-bear as tolerated. DVT prophylaxis will be performed with SCDmarina, FARZANEH conn, early mobilization, and Lovenox followed by Pradaxa. Edilberto Johansen MD Jan 25, 2017 08:46
[2017-01-25] MEDS ORDERED: NORC5TAB PO (08:47)
[2017-01-25] MEDS ORDERED: ENOX40P SQ (08:52)
[2017-01-25] MEDS ORDERED: DO NOT ADM ANY ANTICOAGULANT DRUGS PRN (09:00)
[2017-01-25] MEDS ORDERED: Post-op Orders (for Pharmacy) MISC XX ONE (09:00)
--- NOTE | 2017-01-25 09:13 | RADRPT ---
EXAM DATE/TIME: 01/25/2017 07:16 [facility] COMPARISON: No previous studies available for comparison. INDICATIONS : Left hip replacement MEDICAL HISTORY : None. SURGICAL HISTORY : None. ENCOUNTER: Initial ACUITY: 1 day PAIN SCORE: Non-responsive. LOCATION: Left hip FINDINGS: The patient is status post a total hip arthroplasty with a bipolar prosthesis. Prosthesis is well-sea michi. Alignment is anatomic. A fracture is not appreciated. CONCLUSION: Anatomic alignment. Mor Romero MD FACR on January 25, 2017 at 9:10 Board Certified Radiologist. This report was verified electronically.
[2017-01-25] MEDS ORDERED: GLUCAGON 1 MG/ML VIAL OTHER PRN (09:30)
[2017-01-25] MEDS ORDERED: DEXTROSE 50% IN WATER 50 ML VIAL(D50) IV PRN (09:30)
[2017-01-25] MEDS: SODIUM CHLOR 0.9% 1000 ML INJ 1,000 ML IV SCH ×2 (09:30→17:33)
[2017-01-25] MEDS ORDERED: *morphine SULFATE 8 MG/ML PERIprocedure ONLY ONE (09:33)
--- NOTE | 2017-01-25 09:40 | RADRPT ---
EXAM DATE/TIME: 01/25/2017 09:15 [facility] COMPARISON: No previous studies available for comparison. INDICATIONS : Post op left hip surgery. MEDICAL HISTORY : Unobtainable. SURGICAL HISTORY : Total right hip replacement. ENCOUNTER: Initial ACUITY: 1 day PAIN SCORE: 0/10 LOCATION: Left hip. FINDINGS: Left total hip arthroplasty is noted. Hardware is intact. Alignment is anatomic. Skin kath are pre sent laterally. The adjacent pelvis is intact. Contralateral right RITA is intact and unremarkable. CONCLUSION: Satisfactory appearance post left RITA Derek Fritz MD on January 25, 2017 at 9:37 Board Certified Radiologist. This report was verified electronically.
[2017-01-25] MEDS ORDERED: NEOSTIGMINE 3 MG/3 ML SYR IV ONE (12:00)
[2017-01-25] MEDS ORDERED: ONDANSETRON HCL 4 MG/2 ML VIAL IV PUSH ONE (12:00)
[2017-01-25] MEDS ORDERED: LACTATED RINGER'S 1000 ML INJ 1,000 ML IV ONE (12:00)
[2017-01-25] MEDS ORDERED: PHENYLEPH/NS 1000 MCG/10 ML SYR IV ONE (12:00)
[2017-01-25] MEDS ORDERED: PROPOFOL 200 MG/20 ML AMP IV ONE (12:00)
[2017-01-25] MEDS ORDERED: ePHEDrine/NS 25 MG/5 ML SYR IV ONE (12:00)
[2017-01-25] MEDS: INSULIN ASPART SUPPLEMENTAL SCALE SQ SCH ×3 (13:00→20:52)
[2017-01-25] MEDS: RAMIPRIL 5 MG CAP PO SCH (13:02)
[2017-01-25] MEDS: SODIUM CHLORIDE 0.9% FLUSH 5 ML FLUSH IVF SCH ×2 (13:02→20:53)
[2017-01-25] MEDS: HYDROCHLOROTHIAZIDE 25 MG TAB PO SCH (13:04)
--- NOTE | 2017-01-25 14:28 | PD.CONS ---
HPI Service [facility] Consult Requested By Dr. Johansen Reason for Consult Medical management Primary Care Physician Vijay Abbasi MD Diagnoses: History of Present Illness This is a 76-year-old male with a history of left hip pain secondary to osteoarthritis. He underwent total hip arthroplasty today by Dr. Johansen who requested consultation to evaluate and manage multiple medical conditions. Anesthesia records reviewed show he was hemodynamically stable received 1200 mL of crystalloid and EBL of 150 mL. Patient states he has hypertension controlled on Altace and hydrochlorothiazide, paroxysmal A. fib currently sinus rhythm on Pradaxa which has been held for several days and Toprol, hyperlipidemia also controlled on Lipitor, allergies on Zyrtec and prediabetes on no medications. At this time he has no complaints he refused Accu-Cheks. All other systems reviewed negative Review of Systems Except as stated in HPI: all other systems reviewed are Neg Past Family Social History Allergies: Coded Allergies: No Known Allergies (Unverified , 01/10/17) Past Medical History As previously mentioned. 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 Past Surgical History Right hip surgery and hernia repair Reported Medications Altace, Pradaxa, metoprolol, Flonase, Lipitor, multivitamins, Zyrtec and hydrochlorothiazide Family History Dementia Social History Drinks wine several times a week does not smoke Physical Exam Vital Signs Vital Signs Date Time Temp Pulse Resp B/P Pulse Ox O2 Delivery O2 Flow Rate FiO2 01/25/17 13:30 Room Air 01/25/17 11:30 98.0 65 16 158/72 98 Nasal Cannula 2 01/25/17 11:27 90 Nasal Cannula 2 01/25/17 11:00 64 18 157/73 95 Room Air 01/25/17 10:30 68 18 153/73 98 Room Air 01/25/17 10:15 67 16 150/71 98 Room Air 01/25/17 10:00 62 16 140/65 98 Nasal Cannula 3 01/25/17 09:45 66 18 138/68 96 Nasal Cannula 3 01/25/17 09:30 60 18 134/62 96 Nasal Cannula 3 01/25/17 09:15 72 18 157/67 97 Nasal Cannula 3 01/25/17 09:04 98.1 69 18 176/70 99 Simple Mask 6 01/25/17 05:49 98.0 60 16 186/86 100 Physical Exam GENERAL: This is a well-nourished, well-developed patient, in no apparent distress. SKIN: No rashes, ecchymoses or lesions. Cool and dry. HEAD: Atraumatic. Normocephalic. No temporal or scalp tenderness. EYES: Pupils equal round and reactive. Extraocular motions intact. No scleral icterus. No injection or drainage. ENT: Nose without bleeding, purulent drainage or septal hematoma. Throat without erythema, tonsillar hypertrophy or exudate. Uvula midline. Airway patent. NECK: Trachea midline. No JVD or lymphadenopathy. Supple, nontender, no meningeal signs. CARDIOVASCULAR: Regular rate and rhythm without gallops, or rubs. He has soft systolic murmur over aortic area RESPIRATORY: Clear to auscultation. Breath sounds equal bilaterally. No wheezes , rales, or rhonchi. GASTROINTESTINAL: Abdomen soft, non-tender, nondistended. No guarding. MUSCULOSKELETAL: Extremities without clubbing, cyanosis, or edema. Left hip with dry dressing. No calf tenderness. Negative Homans sign bilaterally. NEUROLOGICAL: Awake and alert. Cranial nerves II through XII intact. Motor and sensory grossly within normal limits. Five out of 5 muscle strength in all muscle groups. Normal speech. Laboratory Preop labs reviewed CBC remarkable for white count of 6 hemoglobin of 14.6 platelet count 208 BMP remarkable for a sodium 137 urea nitrogen 12 creatinine 1.08 glucose of 202 urinalysis with no signs of infection, chest x-ray without acute findings EKG in June 2017 shows sinus bradycardia with first- degree AV block Laboratory Tests Test 01/25/17 05:50 Blood Type O POSITIVE Antibody Screen NEGATIVE Imaging Last Impressions Hip and Pelvis X-Ray 01/25/17 0841 Signed Impressions: Service Date/Time: Wednesday, January 25, 2017 09:15 - CONCLUSION: Satisfactory appearance post left RITA Derek Fritz MD Hip X-Ray 01/25/17 0000 Signed Impressions: Service Date/Time: Wednesday, January 25, 2017 07:16 - CONCLUSION: Anatomic alignment. Mor Romero MD FACR Assessment and Plan Assessment and Plan This is a 76-year-old male with a history of left hip pain secondary to osteoarthritis. He underwent total hip arthroplasty by Dr. Johansen who requested consultation to evaluate and manage multiple medical conditions. Anesthesia records reviewed show he was hemodynamically stable received 1200 mL of crystalloid and EBL of 150 mL. continue postoperative care with the wound care, physical therapy, incentive spirometry, DVT prophylaxis with Lovenox and pain management with Tylenol and IV morphine. Hypertension controlled on Altace and hydrochlorothiazide which will be continued with hold parameters. Paroxysmal A. fib currently sinus rhythm on Pradaxa which has been held and Toprol Hyperlipidemia also controlled on Lipitor Allergies on Zyrtec Prediabetes on no medications. Monitor fingersticks with sliding scale coverage Discussed Condition With Home health care physical therapy when ready Lance Banks MD Jan 25, 2017 14:28
[2017-01-25 15:42] VITALS: O2SAT 98
[2017-01-25 15:46] VITALS: BP 145/75; PULSE 72; RESP 18; TEMP 95.5; O2SAT 99
[2017-01-25] MEDS ORDERED: ACETAMINOPHEN 325 MG TAB PO PRN (16:00)
[2017-01-25] MEDS: ACETAMINOPHEN 325 MG TAB PO PRN ×2 (16:11→22:01)
[2017-01-25 20:05] VITALS: BP 136/73; PULSE 72; RESP 17; TEMP 96.8; O2SAT 99
[2017-01-25 20:46] VITALS: O2SAT 98
[2017-01-25] MEDS: MAGNESIUM HYDROXIDE SUSP 30 ML CUP PO PRN (20:47)
[2017-01-25] MEDS ORDERED: CETIRIZINE HCL 10 MG TAB PO SCH (21:00)
[2017-01-25] MEDS ORDERED: METOPROLOL SUCCINATE 50 MG EXTENDED RELEASE TAB PO SCH (21:00)
[2017-01-25] MEDS ORDERED: ATORVASTATIN 10 MG TAB PO SCH (21:00)
[2017-01-26 00:40] VITALS: BP 137/65; PULSE 89; RESP 17; TEMP 98.4; O2SAT 98
[2017-01-26] MEDS: SODIUM CHLOR 0.9% 1000 ML INJ 1,000 ML IV SCH (02:08)
[2017-01-26 04:45] VITALS: BP 121/56; PULSE 69; RESP 17; TEMP 97.8; O2SAT 98
[2017-01-26] MEDS: INSULIN ASPART SUPPLEMENTAL SCALE SQ SCH ×2 (06:13→11:58)
[2017-01-26] MEDS ORDERED: DEXAMETHASONE SOD PHOS 20 MG/5 ML VIAL IV ONE (07:45)
[2017-01-26 07:51] LABS: HEMATOCRIT 37.2 % (39.0-51.0); MEAN CELL VOLUME 85.5 FL (80.0-100.0); MEAN CORPUSCULAR HEMOGLOBIN 29.3 PG (27.0-34.0); MEAN CORPUSCULAR HGB CONC 34.3 % (32.0-36.0); PLATELET COUNT 203 TH/MM3 (150-450); RED BLOOD COUNT 4.35 MIL/MM3 (4.50-5.90); RED CELL DISTRIBUTION WIDTH 13.3 % (11.6-17.2); REVIEW FLAG FINAL; WHITE BLOOD COUNT 11.4 TH/MM3 (4.0-11.0)
[2017-01-26 08:00] VITALS: BP 139/66; PULSE 63; RESP 20; TEMP 97.7; O2SAT 99
[2017-01-26] MEDS ORDERED: ENOXAPARIN SODIUM 40 MG/0.4 ML SYRINGE SQ SCH (08:00)
[2017-01-26] MEDS: HYDROCHLOROTHIAZIDE 25 MG TAB PO SCH (08:12)
[2017-01-26] MEDS: SODIUM CHLORIDE 0.9% FLUSH 5 ML FLUSH IVF SCH (08:13)
[2017-01-26] MEDS: RAMIPRIL 5 MG CAP PO SCH (08:13)
[2017-01-26] MEDS: MAGNESIUM HYDROXIDE SUSP 30 ML CUP PO PRN (08:28)
--- NOTE | 2017-01-26 10:13 | HHI.PR ---
Subjective Remarks Follow-up Left total hip arthroplasty. States he is doing okay on a bed to chair. Passing gas still no BM. Denies nausea and abdominal pain. Discussed with RN Objective Vitals Vital Signs Date Time Temp Pulse Resp B/P Pulse Ox O2 Delivery O2 Flow Rate FiO2 01/26/17 08:00 97.7 63 20 139/66 99 01/26/17 06:45 Room Air 01/26/17 04:45 97.8 69 17 121/56 98 01/26/17 00:40 98.4 89 17 137/65 98 01/25/17 20:46 98 21 01/25/17 20:05 96.8 72 17 136/73 99 01/25/17 15:46 95.5 72 18 145/75 99 01/25/17 15:42 98 21 01/25/17 13:30 Room Air 01/25/17 11:30 98.0 65 16 158/72 98 Nasal Cannula 2 01/25/17 11:27 90 Nasal Cannula 2 01/25/17 11:00 64 18 157/73 95 Room Air 01/25/17 10:30 68 18 153/73 98 Room Air 01/25/17 10:15 67 16 150/71 98 Room Air I/O 01/25/17 01/25/17 01/25/17 01/26/17 01/26/17 01/26/17 07:00 15:00 23:00 07:00 15:00 23:00 Intake Total 2300 ml 240 ml 370 ml Output Total 670 ml 1250 ml Balance 1630 ml 240 ml -880 ml Intake Oral 300 ml 240 ml 240 ml IV Total 200 ml 130 ml Other 1800 ml Output Urine Total 520 ml 1250 ml Estimated Blood Loss 150 ml # Voids 1 2 # Bowel Movements 0 0 0 Result Diagram: 01/26/17 0657 Imaging Last Impressions Hip and Pelvis X-Ray 01/25/17 0841 Signed Impressions: Service Date/Time: Wednesday, January 25, 2017 09:15 - CONCLUSION: Satisfactory appearance post left RITA Derek Fritz MD Hip X-Ray 01/25/17 0000 Signed Impressions: Service Date/Time: Wednesday, January 25, 2017 07:16 - CONCLUSION: Anatomic alignment. Mor Romero MD FACR Objective Remarks GENERAL: This is a well-nourished, well-developed patient, in no apparent distress. SKIN: No rashes, ecchymoses or lesions. Cool and dry. HEAD: Atraumatic. Normocephalic. No temporal or scalp tenderness. EYES: Pupils equal round and reactive. Extraocular motions intact. No scleral icterus. No injection or drainage. ENT: Nose without bleeding, purulent drainage or septal hematoma. Throat without erythema, tonsillar hypertrophy or exudate. Uvula midline. Airway patent. NECK: Trachea midline. No JVD or lymphadenopathy. Supple, nontender, no meningeal signs. CARDIOVASCULAR: Regular rate and rhythm without gallops, or rubs. He has soft systolic murmur over aortic area RESPIRATORY: Clear to auscultation. Breath sounds equal bilaterally. No wheezes , rales, or rhonchi. GASTROINTESTINAL: Abdomen soft, non-tender, nondistended. No guarding. MUSCULOSKELETAL: Extremities without clubbing, cyanosis, or edema. Left hip with dry dressing. No calf tenderness. Negative Homans sign bilaterally. NEUROLOGICAL: Awake and alert. Cranial nerves II through XII intact. Motor and sensory grossly within normal limits. Five out of 5 muscle strength in all muscle groups. Normal speech. A/P Assessment and Plan This is a 76-year-old male with a history of left hip pain secondary to osteoarthritis. He underwent total hip arthroplasty by Dr. Johansen who requested consultation to evaluate and manage multiple medical conditions. Anesthesia records reviewed show he was hemodynamically stable received 1200 mL of crystalloid and EBL of 150 mL. Continue postoperative care with the wound care, physical therapy, incentive spirometry, DVT prophylaxis with Lovenox and pain management with Tylenol and IV morphine. Hypertension controlled on Altace and hydrochlorothiazide which will be continued with hold parameters. Paroxysmal A. fib currently sinus rhythm on Pradaxa which has been held and Toprol Hyperlipidemia also controlled on Lipitor Allergies on Zyrtec Prediabetes on no medications. Monitor fingersticks with sliding scale coverage. Fingerstick stable Mild postoperative anemia secondary to acute blood loss. Asymptomatic. Repeat CBC in the morning Discharge Planning Discharge with home care per orthopedic surgery Lance Banks MD Jan 26, 2017 10:13
[2017-01-26] MEDS: ACETAMINOPHEN 325 MG TAB PO PRN (10:30)
--- NOTE | 2017-01-26 12:09 | PD.ORT.PN ---
Subjective Post Op Day #: 1 Subjective Remarks Patient is OOB in chair with no pain to the left hip. Patient has only taken Tylenol for pain management. Patient is ambulatory. Objective Vitals Vital Signs Date Time Temp Pulse Resp B/P Pulse Ox O2 Delivery O2 Flow Rate FiO2 01/26/17 08:00 97.7 63 20 139/66 99 01/26/17 06:45 Room Air 01/26/17 04:45 97.8 69 17 121/56 98 01/26/17 00:40 98.4 89 17 137/65 98 01/25/17 20:46 98 21 01/25/17 20:05 96.8 72 17 136/73 99 01/25/17 15:46 95.5 72 18 145/75 99 01/25/17 15:42 98 21 01/25/17 13:30 Room Air I/O 01/25/17 01/25/17 01/25/17 01/26/17 01/26/17 01/26/17 07:00 15:00 23:00 07:00 15:00 23:00 Intake Total 2300 ml 240 ml 370 ml Output Total 670 ml 1250 ml Balance 1630 ml 240 ml -880 ml Intake Oral 300 ml 240 ml 240 ml IV Total 200 ml 130 ml Other 1800 ml Output Urine Total 520 ml 1250 ml Estimated Blood Loss 150 ml # Voids 1 2 # Bowel Movements 0 0 0 Result Diagram: 01/26/17 0657 Procedures Left RITA Objective Remarks The patient's dressings were changed with no drainage. Incision is well approximated with surgical clips intact. No redness or s/s of infection. EHL/ TA/G intact. No calf tenderness or swelling. + SILT. Assessment & Plan Ortho Post Op Day #: 1 Problem List: Assessment and Plan POD #1: Left RITA 1. WBAT LLE 2. Lovenox followed by ASA 3. Ice to the left hip PRN 4. Anticipatory discharge home with home health today. Danyel Adam Jan 26, 2017 12:08
[2017-01-26] MEDS ORDERED: DOCUSATE SODIUM 100 MG CAP PO SCH (21:00)
[2017-01-26] MEDS ORDERED: MULTIVITAMINS/MINERALS THERAPEUTIC TAB PO SCH (21:00)
== END 2017-01-26 13:09 | disposition home health service (06) | DRG 470 ==
LOC: HSDI 01-25 05:11 → N06A 01-25 11:45
PROVIDERS: ADMIT Orthopaedic Surgery; ATTEND Orthopaedic Surgery
PROC: 0SRB02A Replacement of Left Hip Joint with Metal on Polyethylene Synthetic Substitute, Uncemented, Open Approach (ICD-10-PCS; principal; 2017-01-25 06:42)
DX: M16.12 Unilateral primary osteoarthritis, left hip (principal); I48.0 Paroxysmal atrial fibrillation; Z96.641 Presence of right artificial hip joint; D62 Acute posthemorrhagic anemia; I10 Essential (primary) hypertension; E78.5 Hyperlipidemia, unspecified; R73.03 Prediabetes; J30.2 Other seasonal allergic rhinitis; Z79.01 Long term (current) use of anticoagulants
CPT/HCPCS: 73502; 76000; 82948; 85027; 86850; 86900; 86901; 94150; C1776; C9290; J0131; J0690; J1100; J1580; J1650; J2250; J2270; J2370; J2405; J2710; J3010; J7030; J7120

== ENCOUNTER → 2017-01-10 | Outpatient (CLI) | payer MEDICARE, OTHER ==
[~2017-01-10] MED LIST changes: +COMMODE 3-IN-11 MIS; +ENOX40P SQ; +MULT-65 PO; +MULT1TAB85 PO; +NORC5TAB PO; +PRAD150C PO; +PRAD75CA PO; +WALKER WHEELS/F1 MIS
[2017-01-10 09:45] LABS: BACTERIA, URINE RARE /hpf; BLOOD, URINE SMALL (NEG); COMMENT (UR) CULT NOT INDICATED; CULTURE IF INDICATED CULT NOT INDICATED; GLUCOSE,URINE 300 mg/dL (NEG); KETONE, URINE NEG (NEG); MUCUS URINE FEW /lpf (OCC); NITRITE,URINE NEG (NEG); PH, URINE 5.5 (5.0-8.5); URINE COLOR YELLOW (YELLW/STRAW)
[2017-01-10 09:49] LABS: AUTOMATED NEUTROPHIL # 3.9 TH/MM3 (1.8-7.7); BASOPHIL % 0.6 % (0.0-2.0); EOSINOPHIL # 0.1 TH/MM3 (0-0.4); EOSINOPHIL % 2.2 % (0.0-4.0); HEMATOCRIT 43.9 % (39.0-51.0); HEMO FLAGS DIFF FINAL; LYMPH % 23.5 % (9.0-44.0); LYMPHOCYTE # 1.4 TH/MM3 (1.0-4.8); MEAN CORPUSCULAR HEMOGLOBIN 28.7 PG (27.0-34.0); MEAN CORPUSCULAR HGB CONC 33.4 % (32.0-36.0); MONO % 8.9 % (0.0-8.0); NEUT % 64.8 % (16.0-70.0); PLATELET COUNT 208 TH/MM3 (150-450); RED CELL DISTRIBUTION WIDTH 13.6 % (11.6-17.2)
[2017-01-10 09:53] LABS: APTT (PATIENT) 37.1 SEC (24.3-30.1); INTERNATIONAL NORMALIZED RATIO 1.1 RATIO; PROTHROMBIN TIME - PATIENT 12.3 SEC (9.8-11.6)
[2017-01-10 10:09] LABS: ALT (GPT) 27 U/L (12-78); ANION GAP 8 MEQ/L (5-15); AST (GOT) 19 U/L (15-37); BICARBONATE 29.3 MEQ/L (21.0-32.0); BLOOD UREA NITROGEN 12 MG/DL (7-18); CHLORIDE 100 MEQ/L (98-107); GLOMERULAR FILTRATION RATE 66 ML/MIN (>89); GLUCOSE,FASTING 202 MG/DL (74-99); SODIUM (NA) 137 MEQ/L (136-145)
[2017-01-10 10:12] LABS: ALKALINE PHOSPHATASE 85 U/L (45-117); TOTAL BILIRUBIN ADULT 0.4 MG/DL (0.2-1.0)
[2017-01-10 10:15] LABS: WESTERGREN SEDIMENTATION RATE 14 mm/hr (0-20)
--- NOTE | 2017-01-10 10:20 | RADRPT ---
EXAM DATE/TIME: 01/10/2017 09:46 [facility] COMPARISON: CHEST PA & LAT, July 18, 2016, 11:28. INDICATIONS : Evaluate for pneumonia, pneumothorax or communicable disease. Pre-op of total hip replacement on MEDICAL HISTORY : Hypertension. SURGICAL HISTORY : None. ENCOUNTER: Initial ACUITY: 1 day PAIN SCORE: 0/10 LOCATION: Bilateral chest FINDINGS: PA and lateral views of the chest demonstrate the lungs to be symmetrically aerated without evidence of mass, infiltrate or effusion. The cardiomediastinal contours are unremarkable. Osseous structure s are intact. CONCLUSION: No acute disease. Dakota Ocasio MD on January 10, 2017 at 10:18 Board Certified Radiologist. This report was verified electronically.
== END ==
LOC: CPRE 09:03
PROVIDERS: ATTEND Orthopaedic Surgery
DX: Z01.812 Encounter for preprocedural laboratory examination (principal); Z01.811 Encounter for preprocedural respiratory examination; M16.12 Unilateral primary osteoarthritis, left hip; M79.609 Pain in unspecified limb; M25.50 Pain in unspecified joint
CPT/HCPCS: 36415; 71020; 80053; 81001; 85025; 85610; 85652; 85730